=== PATIENT | male | born 1960 | race Caucasian/White ===

== ENCOUNTER 2016-09-15 10:31 | Emergency (ER) | payer BC ==
[2016-09-15] MEDS ORDERED: Aspirin Low Dose CHEW TAB* 81 MG PO ONE (11:17)
[2016-09-15] MEDS ORDERED: Ketorolac INJ* 30 MG/ML 1 ML VIAL IV PUSH ONE (11:18)
[2016-09-15 12:14] LABS: Hematocrit 41 % (42-52); Hemoglobin 13.7 g/dl (14.0-18.0); Mean Corpuscular HGB Conc 34 g/dl (31-36); Mean Corpuscular Hemoglobin 29 pg (27-31); Mean Corpuscular Volume 85 fL (80-94); Mean Platelet Volume 11 um3 (7.4-10.4); Red Blood Count 4.82 10^6/ul (4.0-5.4); Red Cell Distribution Width 14 % (10.5-15)
[2016-09-15 12:30] LABS: Albumin 3.8 g/dL (3.2-5.2); BUN/Creatinine Ratio 16.7 (8-20); EGFR Non-African American 81.6 (>60); Globulin 2.8 g/dL (2-4); Potassium 4.1 mmol/L (3.5-5.0); Total Bilirubin 0.5 mg/dL (0.2-1.0); Total Protein 6.6 g/dL (6.4-8.9)
[2016-09-15] MEDS ORDERED: Iohexol 350* (CONTRAST) 500 ML MDV IV ONE (12:34)
--- NOTE | 2016-09-15 13:36 | RAD ---
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 COMPARISON: None. TECHNIQUE: Multidetector CT images were obtained from the lung apices to the upper abdomen with 79 IV contrast. Pulmonary angiogram protocol. 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 REPORT: Clear lungs and pleural spaces. Negative for thoracic lymphadenopathy, cardiomegaly, pericardial effusion. Normal diameter thoracic aorta without suspicious finding. No filling defects are identified from the main to the subsegmental pulmonary arteries to indicate presence of a pulmonary embolism. Limited images through the upper abdomen are remarkable for moderate fatty involution of the pancreas is a small splenule adjacent to the anterior lateral margin of the spleen. Colonic diverticulosis noted. There is a 1.2 cm AP by 2.0 cm transverse by 4.2 cm cephalocaudal osteolytic lesion at the sternum with osteolysis at both the anterior and posterior cortex without associated periosseous mass. No additional focal osseous lesions evident within the [id number]. Negative for sternal, rib, thoracic spine, or other thoracic fracture. IMPRESSION: 1. No evidence for pulmonary embolism. 2. 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 Consider metastasis from entity such as thyroid carcinoma or renal carcinoma with no suspicious lesion evident at the thyroid gland on CT however ultrasound is a more sensitive test for detection of thyroid lesions as well as renal cell carcinoma with no gross renal lesion evident on the visualized portions of the kidneys on the current exam however assessment is limited due to early phase of contrast enhancement. Additionally consider primary osseous neoplasm such as plasmacytoma/multiple myeloma. 3. Negative for thoracic lymphadenopathy or suspicious focal pulmonary lesions. Results discussed with Dr. Paniagua 09/15/2016 1:32 PM EDT
[2016-09-15 14:44] VITALS: BP 150/92
--- NOTE | 2016-09-15 16:30 | ED ---
Oscar Connolly Adam, scribed for Lorenzo Paniagua MD on 09/15/16 at 1051 . HPI Chest Pain - HPI Summary HPI Summary: Pt is a 56 year old male presenting with CP. The pain is localized around the pt 's sternum and it does not radiate anywhere. He states that the pain is mild and has been intermittent for the past 3 weeks. He believes that it is musculoskeletal pain. The pain is aggravated greatly by coughing and sneezing, which bring it up to a 7-8 out of 10 in severity. Sitting up and putting pressure on the sternum also aggravate the pain. Breathing does not make the pain worse, but he states that he is unable to take a full breath. When he is still the pain is a 2/10. He has not taken anything for the pain. Pt denies diaphoresis, arm pain, jaw pain, and cough. He states that he has played hockey several times since the pain set on without any complications or problems. He denies any recent illness. Negative tobacco use, occasional alcohol. He denies any HTN, DM, HLD, or any other PMHx. - History of Current Complaint Chief Complaint: EDChestPainROMI Hx Obtained From: Patient Onset/Duration: Started Weeks Ago, Atraumatic, Still Present Timing: Intermittent Initial Severity: Mild Current Severity: Mild Pain Intensity: 1 Pain Scale Used: 0-10 Numeric Chest Pain Location: Mid Sternal Chest Pain Radiates: No Character: Other: - "Feels musculoskeletal" Aggravating Factor(s): Movement, Other: - Palpation, sneezing, coughing Alleviating Factor(s): Nothing Associated Signs and Symptoms: Positive: Negative - Allergy/Home Medications Allergies/Adverse Reactions: Allergies Allergy/AdvReac Type Severity Reaction Status Date / Time No Known Allergies Allergy Verified 09/15/16 10:33 PMH/Surg Hx/FS Hx/Imm Hx Endocrine/Hematology History: Denies: Hx Diabetes, Hx Thyroid Disease Cardiovascular History: Denies: Hx Hypertension Respiratory History: Denies: Hx Asthma, Hx Chronic Obstructive Pulmonary Disease (COPD) GI History: Denies: Hx Ulcer Infectious Disease History: No Infectious Disease History: Denies: Hx Clostridium Difficile, Hx Hepatitis, Hx Human Immunodeficiency Virus (HIV), Hx of Known/Suspected MRSA, Hx Shingles, Hx Tuberculosis, Hx Known/ Suspected VRE, Hx Known/Suspected VRSA, History Other Infectious Disease, Traveled Outside the [place] in Last 30 Days - Family History Known Family History: Positive: Other - No history of osteoarthritis, no cardiac disease Negative: Cardiac Disease - Social History Occupation: Employed Full-time Lives: With Family - Alcohol Use: Occasionally Hx Substance Use: No Substance Use Type: Reports: None Hx Tobacco Use: No Smoking Status (MU): Never Smoked Tobacco Review of Systems Negative: Fever, Chills, Skin Diaphoresis Negative: Erythema Negative: Sore Throat Positive: Chest Pain Negative: Shortness Of Breath, Cough Negative: Abdominal Pain, Vomiting, Nausea Negative: dysuria, hematuria Negative: Myalgia, Edema Negative: Rash Neurological: Other - Negative dizziness All Other Systems Reviewed And Are Negative: Yes Physical Exam - Summary Physical Exam Summary: Constitutional: Well-developed, Well-nourished, Alert. (-) Distressed Skin: Warm, Dry HENT: Normocephalic; Atraumatic Eyes: Conjunctiva normal Neck: Musculoskeletal ROM normal neck. (-) JVD, (-) Stridor, (-) Tracheal deviation Cardio: Rhythm regular, rate normal, Heart sounds normal; Intact distal pulses; The pedal pulses are 2+ and symmetric. Radial pulses are 2+ and symmetric. (-) Murmur Pulmonary/Chest wall: Effort normal. (-) Respiratory distress, (-) Wheezes, (-) Rales Abd: Soft, (-) Tenderness, (-) Distension, (-) Guarding, (-) Rebound Musculoskeletal: Tenderness at the right 3rd costochondral junction. Lymph: (-) Cervical adenopathy Neuro: Alert, Oriented x3 Psych: Mood and affect Normal Triage Information Reviewed: Yes Vital Signs On Initial Exam: Initial Vitals Temp Pulse Resp BP Pulse Ox 98.0 F 75 16 149/91 100 09/15/16 10:33 09/15/16 10:33 09/15/16 10:33 09/15/16 10:33 09/15/16 10:33 Vital Signs Reviewed: Yes - Tami Coma Scale Coma Scale Total: 15 Diagnostics - Vital Signs Vital Signs Temp Pulse Resp BP Pulse Ox 09/15/16 10:48 71 09/15/16 10:33 98.0 F 75 16 149/91 100 - Laboratory Result Diagrams: 09/15/16 11:30 09/15/16 11:30 Lab Statement: Any lab studies that have been ordered have been reviewed, and results considered in the medical decision making process. - CT CHEST/THORAX CTA CT Interpretation Completed By: Radiologist - IMPRESSION: 1. No evidence for pulmonary embolism. 2. 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 Consider metastasis from entity such as thyroid carcinoma or renal carcinoma with no suspicious lesion evident at the thyroid gland on CT however ultrasound is a more sensitive test for detection of thyroid lesions as well as renal cell carcinoma with no gross renal lesion evident on the visualized portions of the kidneys on the current exam however assessment is limited due to early phase of contrast enhancement. Additionally consider primary osseous neoplasm such as plasmacytoma/multiple myeloma. 3. Negative for thoracic lymphadenopathy or suspicious focal pulmonary lesions. Results discussed with Dr. Paniagua 2016 1:32 PM EDT - EKG 10:42 Cardiac Rate: NL - 71 BPM EKG Rhythm: Sinus Rhythm EKG Interpretation: No STEMI - Additional Comments Diagnostic Additional Comments: Troponin I - 0.00 Chest Pain Course/Dx - Course Course Of Treatment: Patient declined offer of pain medication. - Diagnoses Provider Diagnoses: Lytic bone lesion - Provider Notifications Discussed Care Of Patient With: Radiology at 13:32. They recommend further imaging as outpatient. Discharge - Discharge Plan Condition: Stable Disposition: HOME Referrals: Reyes Miles MD [Primary Care Provider] - Additional Instructions: Follow up with Dr. Miles on Tuesday09/18/16. The documentation as recorded by the Oscar angulo Adam accurately reflects the service I personally performed and the decisions made by Siva moran Jerry, MD.
== END 2016-09-15 14:43 | disposition home or self-care (01) ==
LOC: ED 10:31
DX: M89.9 Disorder of bone, unspecified (principal); R07.9 Chest pain, unspecified
CPT/HCPCS: 36415; 71275; 80053; 83605; 84484; 85025; 93005; 96374; 99283; A9270-GY; J1885; Q9967

== ENCOUNTER 2016-09-19 20:15 | Emergency (ER) | payer BC ==
[2016-09-19 20:33] VITALS: BP 137/92
[2016-09-19] MEDS ORDERED: HYDROcodone/ACETAMIN 5-325 MG* 1 TAB PO ONE ×2 (20:48→21:18)
--- NOTE | 2016-09-19 22:41 | UC ---
Maurisio Connolly Anna, scribed for Camelia Moore MD on 09/19/16 at 2058 . Cardiac HPI - HPI Summary HPI Summary: Patient is a 56 y/o male [place] [facility] [place] with intermittent mid- sternal chest pain that began three weeks ago. The pain comes in spasms. He was seen at [facility] on and diagnosed with a lytic bony lesion of his sternum on CT. The pain has continued. He played hockey three days ago and noticed the pain was worse two days ago and yesterday. Per triage notes, the patient describes the severity of the pain as 4/10. The pain is exacerbated by exertion or deep breaths. Denies SOB. Denies trauma or injury when playing hockey or otherwise. Declines need for XR, EKG. Pain is similar to before, "just amplified ". Denies radiating pain down arm. He spoke with his PCP, Dr. Miles, who advised that he come to [facility] for pain management. He had a normal blood test and normal EKG this week. - History of Current Complaint Chief Complaint: UCChestPain Stated Complaint: CHEST PAIN Hx Obtained From: Patient Onset/Duration: Gradual Onset, Lasting Weeks, Still Present, Worse Since - two days ago Initial Severity: Moderate Current Severity: Moderate Pain Intensity: 4 - /10 Chest Pain Location: Mid Sternal Character: Dull/Aching Aggravating: Exertion, Position, Deep Breaths Alleviating: Rest, Position Associated Signs & Symptoms: Positive: Chest Pain. Negative: Numbness, Tingling , Weakness, SOB - Allergy/Home Medications Allergies/Adverse Reactions: Allergies Allergy/AdvReac Type Severity Reaction Status Date / Time No Known Allergies Allergy Verified 09/19/16 20:33 PMH/Surg Hx/FS Hx/Imm Hx Previously Healthy: No - lesion in sternum on CT Endocrine History Of: Denies: Diabetes, Thyroid Disease Cardiovascular History Of: Denies: Cardiac Disorders, Hypertension Respiratory History Of: Denies: COPD, Asthma GI/ History Of: Denies: Ulcer - Surgical History Surgical History: Yes Surgery Procedure, Year, and Place: TONSILLECTOMY, PYLORIC STENOSIS, HYSTERECTOMY, PARTIAL LUMPECTOMY - Family History Known Family History: Positive: Other - No history of osteoarthritis, no cardiac disease Negative: Cardiac Disease - Social History Lives: With Family Alcohol Use: Occasionally Substance Use Type: None Smoking Status (MU): Never Smoked Tobacco - Immunization History Most Recent Influenza Vaccination: never Most Recent Tetanus Shot: approx 4 yrs ago Most Recent Pneumonia Vaccination: never Review of Systems Constitutional: Negative Skin: Negative Eyes: Negative ENT: Negative Respiratory: Negative Cardiovascular: Chest Pain Gastrointestinal: Negative Genitourinary: Negative Motor: Negative Neurovascular: Negative Musculoskeletal: Negative Neurological: Negative Psychological: Negative All Other Systems Reviewed And Are Negative: Yes Physical Exam Triage Information Reviewed: Yes Appearance: Well-Appearing, Well-Nourished, Pain Distress Vital Signs: Initial Vital Signs Temp 98.4 F 09/19/16 20:20 Pulse 79 09/19/16 20:20 Resp 18 09/19/16 20:20 BP 137/92 09/19/16 20:20 Pulse Ox 98 09/19/16 20:20 High blood pressure noted. Vital Signs Reviewed: Yes Eyes: Positive: Conjunctiva Clear ENT: Positive: Normal ENT inspection Neck: Positive: Supple Respiratory Exam: Other - Mid-sternal tenderness Respiratory: Positive: Lungs clear, No respiratory distress, Decreased breath sounds - throughout Cardiovascular: Positive: RRR, No Murmur, Pulses Normal, Brisk Capillary Refill Musculoskeletal: Positive: Strength Intact, ROM Intact Neurological: Positive: Alert, Muscle Tone Normal Psychological Exam: Normal Skin Exam: Normal - Assessment/Plan Course Of Treatment: High blood pressure noted. Discussed analgesic pills vs. Toradol shot. The patient says the Toradol did not help when he was seen at the ED on 09/15/2016 and he would prefer analgesic pills. - Differential Diagnoses - Chest Pain Differential Diagnosis/HQI/PQRI: ACS, Chest Wall, Lower Respiratory Infection, Other: - chest pain from sternal bony lesion - Clinical Impression Provider Diagnoses: Chest pain. Sternal bony lesion. High blood pressure without diagnosis of hypertension. Discharge - Discharge Plan Condition: Stable Disposition: HOME Prescriptions: HYDROcodone/ACETAMIN 5-325 MG* [Brooker 5-325 TAB*] 1 tab PO Q4H PRN #18 tab MDD 6 PRN Reason: Pain Patient Education Materials: Chest Wall Pain (ED) Forms: *Work Release Referrals: Reyes Miles MD [Primary Care Provider] - 2 Days Additional Instructions: RETURN TO URGENT CARE FOR ANY NEW OR WORSENING SYMPTOMS The documentation as recorded by the Maurisio angulo Anna accurately reflects the service I personally performed and the decisions made by me, Camelia Moore MD.
== END 2016-09-19 21:36 | disposition home or self-care (01) ==
LOC: UCEAST 20:15
DX: R07.2 Precordial pain (principal); M89.9 Disorder of bone, unspecified; R03.0 Elevated blood-pressure reading, without diagnosis of hypertension
CPT/HCPCS: 99212; G0463

== ENCOUNTER 2018-11-12 19:55 | Emergency (ER) | payer SELFPAY ==
--- NOTE | 2018-11-12 19:59 | UC ---
Ear Complaint HPI - HPI Summary HPI Summary: 58 yo male presents with right ear plugged and decreased hearing for the last 5 days. He used debrox ear drops with mild relief. He has had issues with cerumen impaction in the past and this feels similar. Denies fever, pain, sinus symptoms. - History of Current Complaint Stated Complaint: EAR PAIN Time Seen by Provider: 11/12/18 19:59 Hx Obtained From: Patient Onset/Duration: Sudden Onset Severity Initially: Mild Severity Currently: None - Allergies/Home Medications Allergies/Adverse Reactions: Allergies Allergy/AdvReac Type Severity Reaction Status Date / Time No Known Allergies Allergy Verified 07/05/18 13:44 Home Medications: Home Medications NK [No Home Medications Reported] 11/12/18 [History Confirmed 11/12/18] PMH/Surg Hx/FS Hx/Imm Hx - Additional Past Medical History Additional PMH: None - Surgical History Surgical History: Yes Surgery Procedure, Year, and Place: TONSILLECTOMY, PYLORIC STENOSIS, sternal biopsy,parotid biopsy, hip biopsy - Family History Known Family History: Positive: Other - No history of osteoarthritis, no cardiac disease Negative: Cardiac Disease - Social History Occupation: Employed Full-time Lives: With Family Alcohol Use: None Substance Use Type: None Smoking Status (MU): Never Smoked Tobacco - Immunization History Most Recent Influenza Vaccination: never Most Recent Tetanus Shot: approx 4 yrs ago Most Recent Pneumonia Vaccination: never Review of Systems All Other Systems Reviewed And Are Negative: Yes Constitutional: Positive: Negative Skin: Positive: Negative Eyes: Positive: Negative ENT: Positive: Ear Ache Respiratory: Positive: Negative Cardiovascular: Positive: Negative Neurovascular: Positive: Negative Neurological: Positive: Negative Psychological: Positive: Negative Physical Exam - Summary Physical Exam Summary: GENERAL: NAD. WDWN. No pain distress. SKIN: No rashes, sores, lesions, or open wounds. HEENT: Head: AT/NC Eyes: EOM intact. Conjunctiva clear without inflammation or discharge. Ears: Hearing grossly normal. B/L cerumen impaction. S/p irrigation - TMs intact and WNL. Mild cerumen still within left canal Nose: Nasal mucosa pink and moist. NTTP maxillary and frontal sinus. Throat: Posterior oropharynx without exudates, erythema, or tonsillar enlargement. Uvula midline. NECK: Supple. No lymphadenopathy. CHEST: No accessory muscle use. Breathing comfortably and in no distress. CV: Pulses intact. Cap refill <2seconds NEURO: Alert. PSYCH: Age appropriate behavior. Triage Information Reviewed: Yes Vital Signs: Vital Signs: Temp Pulse Resp BP Pulse Ox 98.2 F 96 18 142/91 98 11/12/18 20:02 11/12/18 20:02 11/12/18 20:02 11/12/18 20:02 11/12/18 20:02 Vital Signs Reviewed: Yes Ear Complaint Course/Dx - Course Course Of Treatment: B/L cerumen impaction. Ear irrigation successful on the right, but left canal still with mild black cerumen lodged within. Unable to remove with curette and pt began to have some discomfort. Will have him use debrox drops in this ear to soften wax and run warm water in the ear during his shower or return in 2-3 days for another irrigation when wax has softened. - Differential Dx/Diagnosis Provider Diagnosis: Cerumen impaction Discharge - Sign-Out/Discharge Documenting (check all that apply): Patient Departure All imaging exams completed and their final reports reviewed: No Studies - Discharge Plan Condition: Stable Disposition: HOME Patient Education Materials: Cerumen Impaction (ED) Referrals: Reyes Miles MD [Primary Care Provider] - Additional Instructions: If you develop a fever, shortness of breath, chest pain, new or worsening symptoms - please call your PCP or go to the ED immediately. Your blood pressure was high at todays visit. Please see your primary provider within 4 weeks for recheck and re-evaluation. Use debrox drops in your left ear to continue to soften the wax and try running warm water in it during a shower to remove the wax. - Billing Disposition and Condition Condition: STABLE Disposition: Home
[2018-11-12 20:22] VITALS: BP 142/91
== END 2018-11-12 20:40 | disposition home or self-care (01) ==
LOC: UCEAST 19:55
DX: H61.21 Impacted cerumen, right ear (principal)
CPT/HCPCS: 69210; 99211; 99213; G0463